=== PATIENT | male | born 1975 | race Caucasian/White ===

== ENCOUNTER 2017-08-16 13:40 | Outpatient (CLI) | payer OTHER | END 2017-08-16 13:41 | disposition home or self-care (01) | LOC: SC 13:40 | PROVIDERS: ATTEND Nurse Practitioner Family | DX: G47.33 Obstructive sleep apnea (adult) (pediatric) (principal); R53.83 Other fatigue | CPT/HCPCS: 99212; 99214 ==

== ENCOUNTER 2018-10-29 08:41 | Outpatient (CLI) | payer OTHER | END 2018-10-29 08:42 | disposition home or self-care (01) | LOC: SC 08:41 | PROVIDERS: ATTEND Nurse Practitioner Family | DX: G47.33 Obstructive sleep apnea (adult) (pediatric) (principal); R53.83 Other fatigue; G47.10 Hypersomnia, unspecified | CPT/HCPCS: 99212; 99215 ==

== ENCOUNTER 2018-12-19 13:32 | Outpatient (CLI) | payer OTHER | END 2018-12-19 13:33 | disposition home or self-care (01) | LOC: SC 13:32 | PROVIDERS: ATTEND Nurse Practitioner Family | DX: G47.33 Obstructive sleep apnea (adult) (pediatric) (principal); G47.10 Hypersomnia, unspecified | CPT/HCPCS: 99212; 99214 ==

== ENCOUNTER 2019-02-18 13:37 | Outpatient (CLI) | payer OTHER | END 2019-02-18 13:38 | disposition home or self-care (01) | LOC: SC 13:37 | PROVIDERS: ATTEND Nurse Practitioner Family | DX: G47.33 Obstructive sleep apnea (adult) (pediatric) (principal) | CPT/HCPCS: 99212; 99213 ==

== ENCOUNTER 2019-04-22 13:34 | Outpatient (CLI) | payer OTHER ==
[2019-04-22 14:55] VITALS: BP 140/90
--- NOTE | 2019-04-22 14:55 | SLEEP CARE CONSULTATION ---
Information from patient questionnaire entered by Yissel Hopper. I have reviewed and concur with the information entered by Yissel Hopper. This document represents the service I personally performed and the decisions made by me, Shira Snyder, RN, MSN, CHARGING OPERATOR. History of Present Illness Previous diagnosis: Mild, Obstructive Sleep Apnea-Hypopnea Syndrome AHI: 6.4 Reason for CPAP/BiPAP follow up: other (2 month) Equipment type: CPAP Equipment obtained from: [employer] Mask style: Nasal (wisp) Mask brand: Respironics Backup mask available: Yes Last cushion change: last night CPAP Compliance Data - Data Reviewed with Patient Average duration of nightly device use: 6.9 Compliance rate %: 88.3 (60 days) Current pressure setting (cmH2O): 12 Humidity settin Heated hose settin Average residual AHI: 1.4 Average large leak: 24 secs Subjective Missed days of use due to: reports: other (camping and a weekend away when no power cord and used spare of his uncles. ) Patient concerns: reports: other (feels like he has to work harder at breathing intermittently ). denies: aerophagia, mask discomfort, air blowing in eyes, mask leak noise, condensation in mask/hose, nasal congestion, dry mouth, nose, throat, epistaxis Observed to snore while using device: No Current pressure setting perceived as: too low On therapy, patient: reports: sleeping better, awakening more refreshed, being more awake and alert during the day, more rested overall (especially with more sleep. ). denies: drowsiness while driving Initial [place] Sleepiness Scale score: 17 Current [place] Sleepiness Scale score: 17 Allergies and Home Medications Known drug allergies: Yes (sulfa) Drug allergies reviewed: Yes Allergy and home medication list: Medication List Medication Name (generic/name brand) Strength & Dosage Azithromycin One daily Singular 10mg tab one daily Omeprazole 20mg tab one daily Claritin 10mg tab one daily as needed Allergy List Sulfa Review of Systems Review of systems same as previous: Yes Physical Exam Blood Pressure: 140/90 Cuff size: long Heart Rate: 85 O2 Saturation: 98 Height: 6 ft 1 in Weight (kg): 326 lb Body Mass Index: 43.0 BMI Classification: Class 3 Impression and Plan 1. Obstructive Sleep Apnea-Hypopnea Syndrome, mild , with good treatment c ompliance and good apnea control. On CPAP therapy, the patient has better sleep quality and is more rested overall. For air hunger, I will increase his CPAP pressure to [id number]. He is to continue to strive for more sleep with minimum goal of 8 hours and maximum of 9 hours. He obtained 9 hours last night and felt much more rested. It seems he needs at least 8 or more hours of sleep to feel rested. If he is able to get sufficient sleep and still has sleepiness symptoms, he was advised to follow up with PCP for further evaluation. To reduce lack of CPAP use when camping, I will send him a copy of battery options for his CPAP once I recieve flyer from [employer]. Patient's apnea severity and rationale for treatment to reduce apnea, improve sleep quality and reduce cardiovascular and cerebrovascular events was reviewed. If he moves prior to 6 months, he is advised to contact this office for follow up. * Change CPAP pressure to 13 cmH2O * Strive for a minimum of 8-9 hours of sleep. * Notify me if snoring with mask or feeling that the pressure is too much or too little * Attempt to lose weight * Follow up with PCP if persistent sleepiness symptoms when sufficient sleep. * Return for follow up in 6 months , or sooner if concerns arise or moves. I spent 100% of this 25 minute visit face to face with the patient with greater than 50% of this was spent time counseling the patient and coordination of care.
== END 2019-04-22 13:35 | disposition home or self-care (01) ==
LOC: SC 13:34
PROVIDERS: ATTEND Nurse Practitioner Family
DX: G47.33 Obstructive sleep apnea (adult) (pediatric) (principal)
CPT/HCPCS: 99212; 99214